=== PATIENT | male | born 1975 | race Hispanic/Latino ===

== ENCOUNTER 2019-10-22 15:18 | Outpatient (CLI) | payer OTHER ==
--- NOTE | 2019-10-22 15:58 | RAD ---
XR Finger(s) Rt Min 2 View HISTORY: Pain in the right finger FINDINGS: No fracture, dislocation or bony destruction is seen. No radiopaque foreign bodies identified.
== END 2019-10-22 15:19 | disposition home or self-care (01) ==
LOC: NAV RAD 15:18
PROVIDERS: ATTEND Family Medicine
DX: M79.641 Pain in right hand (principal)